=== PATIENT | male | born 1970 | race Caucasian/White ===

== ENCOUNTER 2020-02-02 14:43 | Inpatient (IN) ==
[2020-02-02] MEDS ORDERED: SODIUM CHLORIDE 0.9% 500 ML IV ONE (14:55)
--- NOTE | 2020-02-02 15:01 | Emergency Department Note ---
Impression & Plan Pulmonary emboli, Acute deep vein thrombosis, Tachycardia ED Provider Note NAME: LEIGHA ABAD AGE: 49 SEX: M : 1970 ARRIVES VIA: Walk-In INFORMANT: Patient ED PROVIDER(S): Gerber Watters DO CHIEF COMPLAINT: Right calf pain HPI: Patient is a 49-year-old male who presents the ER for right lower extremity pain. He notes that it started this past Saturday and has been getting worse. He notes his left calf is normally larger than his right parenthesis change. He has had 2 superficial DVTs previously. Notes that the pain is in his right calf but when he walks it does radiate up into his right thigh in the posterior aspect. Pain is a 6 out of 10. Better with rest but worsens with movement. Denies any previous blood clots in the lungs. No recent trips or travel, coughing up blood history of clotting disorders. No recent trauma. No other e xacerbating or remitting factors. ROS: See above HPI for pertinent positives & negatives. A total of 10 systems reviewed and were otherwise negative. PAST MEDICAL HISTORY:See Below PAST SURGICAL HISTORY:See Below FAMILY HISTORY:See Below SOCIAL HISTORY:See Below HOME MEDICATIONS:See Below ALLERGIES:See Below VITALS:See Below PHYSICAL EXAMINATION: GENERAL: Sitting up in bed, alert, well appearing, well nourished, no distress, non-toxic EYE EXAM: normal conjunctiva. OROPHARYNX: no exudate, no erythema, lips, buccal mucosa, and tongue normal and mucous membranes are moist LUNGS: Clear to auscultation. Normal chest wall mechanics HEART: Tachycardic, S1 normal and S2 normal ABDOMEN: abdomen soft, non-tender, normo-active bowel sounds, no masses, no rebound or guarding. BACK: Back is symmetrical on inspection and there is no deformity, no midline tenderness, no CVA tenderness. SKIN: no rashes and no bruising UPPER EXTREMITIES: upper extremities are grossly normal. LOWER EXTREMITIES: No pitting edema. Right calf larger than left calf. Full active and passive range of motion of right hip, knee, and ankle. DPs 2 out of 4. NEURO EXAM: Normal sensorium, cranial nerves II-XII grossly intact, normal speech, no weakness of arms, no weakness of legs. MEDICAL DECISION MAKING: Patient is a 49 y/o male that presents to RLE swelling and pain since Saturday. IV established shows no significant leukocytosis or anemia. INR was unremarkable. BMP with LFTs bilirubin troponin lipase is unremarkable. Duplex of lower extremity shows extensive clot in the right lower extremity. Patient was tachycardic upon arrival and consequently CTA of the chest was performed and showed PEs. Extensive discussion and he notes no history of any previous brain bleeds, coughing up blood, vomiting blood, urinating blood or blood in stool. Placed was placed on a heparin drip and given a bolus of heparin due to the extensive DVTs and PEs. He was updated bedside. Discussed with the hospitalist and patient was admitted for further work-up. EKG showed no ischemic changes. Triage Nursing notes reviewed. Prior medical records reviewed Vital Signs: reviewed and remarkable for tachycardic Differential diagnosis: DVT, musculoskeletal, infection, joint effusion, trauma, lymphedema, idiopathic, CHF, as well as other pathologies. ER treatment provided: See below Diagnostics interpreted by me: ECG: Sinus rhythm rate of 92 Left axis Poor baseline No PVCs Normal QTC Cardiac Monitoring: An order was placed for continuous cardiac monitoring. The monitor shows a rate of 101 with sinus rhythm. Laboratory studies: As stated above and show below. Imaging studies: CT Angio of the chest shows pulmonary emboli. Duplex of lower extremity shows extensive clot burden Consultation(s): [facility] under Dr. Boss [facility]. ED COURSE: Procedures: none Critical Care: I have personally spent 45 minutes of critical care time in the direct management of this patient. This includes bedside care, interpretation of diagnostic studies, and testing, discussion with consultants, patient, and family members, and other required patient management activities. This 45 minutes is in excess of all separately billable procedures. Past Med/Surg History Social History Feels Safe at Home: Yes Smoking Status: Never smoker Allergies Allergies Allergy/AdvReac Type Severity Reaction Status Date / Time aspirin Allergy Unknown Nose Bleeds Verified 02/02/20 15:59 Home Meds Home Medications Medication Instructions Recorded Confirmed fluticasone propionate 2 spray INTRANASAL DAILY PRN 02/02/20 02/02/20 Previous Rx's Medication Instructions Recorded oxybutynin chloride 10 mg 10 mg PO DAILY #90 tab 07/23/19 tablet,extended release 24 hr tamsulosin 0.4 mg capsule 0.4 mg PO DAILY #90 cap 07/23/19 Results & Data (ED) Vital Signs Vital Signs - 24 hr 02/02/20 14:44 02/02/20 15:14 02/02/20 15:17 Temperature 37.0 C Temperature Source Oral Pulse Rate 107 H 89 Pulse Rate from SpO2 Sensor 89 Respiratory Rate 20 27 H Blood Pressure 138/83 Blood Pressure Mean 101 Pulse Oximetry 96 97 97 Oxygen Delivery Method Room Air Room Air Sepsis Recent Fever Within 48 Hours No Sepsis New/Unexplained Change in Mental Status No Sepsis Action Taken by Nursing No Action Required 02/02/20 15:41 02/02/20 15:50 02/02/20 16:00 Temperature Temperature Source Pulse Rate 78 77 84 Pulse Rate from SpO2 Sensor 78 78 84 Respiratory Rate 22 20 19 Blood Pressure 158/110 H Blood Pressure Mean 129 Pulse Oximetry 98 97 99 Oxygen Delivery Method Sepsis Recent Fever Within 48 Hours Sepsis New/Unexplained Change in Mental Status Sepsis Action Taken by Nursing 02/02/20 16:18 02/02/20 16:20 02/02/20 16:30 Temperature Temperature Source Pulse Rate 100 H 87 88 Pulse Rate from SpO2 Sensor 88 88 Respiratory Rate 16 23 22 Blood Pressure 138/84 Blood Pressure Mean 94 Pulse Oximetry 99 98 Oxygen Delivery Method Sepsis Recent Fever Within 48 Hours Sepsis New/Unexplained Change in Mental Status Sepsis Action Taken by Nursing Laboratory Data Result diagrams: 02/02/20 15:09 02/02/20 15:09 Lab Results 02/02/20 02/02/20 02/02/20 Range/Units 15:09 15:09 15:09 WBC 9.41 (4.8-10.8) K/uL RBC 4.91 (4.7-6.1) M/uL Hgb 14.9 (14.0-18.0) g/dL Hct 43.5 (42-52) % MCV 88.6 (80-100) fL MCH 30.3 (25-34) pg MCHC 34.3 (32-36) g/dL RDW Std Deviation 41.2 (36.4-46.3) fL RDW Coeff of Nba 12.8 (11.5-14.5) % Plt Count 176 (130-400) K/uL MPV 9.4 (7.4-10.4) fL Immature Gran % (Auto) 0.3 % Neut % (Auto) 64.5 % Lymph % (Auto) 21.1 % Wood % (Auto) 10.2 % Eos % (Auto) 3.6 % Baso % (Auto) 0.3 % Immature Gran # (Auto) 0.03 H (0.00-0.02) K/uL Neut # (Auto) 6.06 (1.4-6.5) K/uL Lymph # (Auto) 1.99 (1.2-3.4) K/uL Wood # (Auto) 0.96 H (0.11-0.59) K/uL Eos # (Auto) 0.34 (0-0.5) K/uL Baso # (Auto) 0.03 (0-0.2) K/uL PT 11.5 (9.0-12.0) Seconds INR 1.1 (0.9-1.1) APTT 27.1 (21.0-31.0) Seconds PTT Ratio 1.0 Sodium 140 (136-145) mmol/L Potassium 4.0 (3.5-5.1) mmol/L Chloride 106 (98-107) mmol/L Carbon Dioxide 28 (21-32) mmol/L Anion Gap 6.0 (3-11) BUN 17 (7-18) mg/dl Creatinine 1.08 (0.6-1.4) mg/dl Est Cr Clr Drug Dosing 117.8 ml/min Est GFR ( Amer) 91.6 Est GFR (Non-Af Amer) 79.0 BUN/Creatinine Ratio 15.8 (10-20) Glucose 97 (70-99) mg/dl Calcium 8.8 (8.5-10.1) mg/dl Total Bilirubin 1.1 H (0.2-1) mg/dl AST 12 L (15-37) U/L ALT 24 (12-78) U/L Alkaline Phosphatase 102 (45-117) U/L Troponin I < 0.015 (0-0.045) ng/ml Total Protein 7.7 (6.4-8.2) gm/dl Albumin 3.6 (3.4-5.0) gm/dl Globulin 4.1 H (2.5-4.0) gm/dl Albumin/Globulin Ratio 0.9 (0.9-2) Lipase 79 (73-393) U/L Administered Medications Heparin Sodium/Dextrose (Heparin Sodium/Dextrose) 25,000 units in 500 mls @ 40 mls/hr IV .[id number] FRANCESCO; Protocol Stop: 03/03/20 16:59 Last Admin: 02/02/20 17:03 Dose: 2,000 units/hr, 40 mls/hr Documented by: [id number] Cosigned by: [id number] Discontinued Medications Heparin Sodium (Porcine) (Heparin Iv Bolus) Confirm Administered Dose 10,000 units .ROUTE .STK-MED ONE Stop: 02/02/20 16:41 Last Admin: 02/02/20 16:44 Dose: 5,000 units Documented by: [id number] Cosigned by: [id number] Heparin Sodium/Dextrose () 1 ea IV NOW STA; Protocol Stop: 02/02/20 16:26 Last Admin: 02/02/20 16:44 Dose: 1 ea Documented by: [id number] Sodium Chloride (Nss) 500 mls @ 999 mls/hr IV .Q31M ONE Stop: 02/02/20 15:25 Last Infusion: 02/02/20 15:54 Dose: 0 mls/hr Documented by: [id number] Admin: 02/02/20 15:13 Dose: 999 mls/hr Documented by: [id number] Discharge Plan Visit Data Chief Complaint: Swelling/Edema to Extremity Stated Complaint: PAIN AND SWELLING R LEG ED Provider: Gerber Watters Discharge Problem: Pulmonary emboli, Acute deep vein thrombosis, Tachycardia Forms Stand Alone Forms: [facility] [place] [employer] Prescriptions Prescriptions: No Action oxybutynin chloride 10 mg tablet extended release 24hr 10 mg PO DAILY Qty: 90 RF: 3 tamsulosin 0.4 mg capsule 0.4 mg PO DAILY Qty: 90 RF: 3 fluticasone propionate 50 mcg/actuation spray,suspension 2 spray INTRANASAL DAILY PRN (Reason: Allergy Symptoms) RF: 0 Discharge Problem: Pulmonary emboli Qualifiers: Pulmonary embolism type: unspecified Chronicity: acute Acute cor pulmonale presence: unspecified Qualified Code(s): I26.99 - Other pulmonary embolism without acute cor pulmonale Acute deep vein thrombosis Qualifiers: DVT location: lower extremity Affected thrombotic vein of extremity: other lower extremity vein Laterality: right Qualified Code(s): I82.491 - Acute embolism and thrombosis of other specified deep vein of right lower extremity
[2020-02-02 15:16] LABS: Basophils # (auto) 0.03 K/uL (0-0.2); Basophils % (auto) 0.3 %; Eosinophils # (auto) 0.34 K/uL (0-0.5); Eosinophils % (auto) 3.6 %; Hematocrit (blood only) 43.5 % (42-52); Hemoglobin 14.9 g/dL (14.0-18.0); Immature Granulocytes # (auto) 0.03 K/uL (0.00-0.02); Immature Granulocytes % (auto) 0.3 %; Lymphocytes # (auto) 1.99 K/uL (1.2-3.4); Lymphocytes % (auto) 21.1 %; Mean Corpuscular Hemoglobin 30.3 pg (25-34); Mean Corpuscular Hgb Conc 34.3 g/dL (32-36); Mean Corpuscular Volume 88.6 fL (80-100); Mean Platelet Volume 9.4 fL (7.4-10.4); Monocytes # (auto) 0.96 K/uL (0.11-0.59); Monocytes % (auto) 10.2 %; Neutrophils # (auto) 6.06 K/uL (1.4-6.5); Neutrophils % (auto) 64.5 %; Platelet Count 176 K/uL (130-400); RDW Coefficient of Variation 12.8 % (11.5-14.5); RDW Standard Deviation 41.2 fL (36.4-46.3); Red Blood Count 4.91 M/uL (4.7-6.1); White Blood Count 9.41 K/uL (4.8-10.8)
[2020-02-02 15:27] LABS: INR 1.1 (0.9-1.1); Partial Thromboplastin Time 27.1 Seconds (21.0-31.0); Prothrombin Time 11.5 Seconds (9.0-12.0)
[2020-02-02 15:35] LABS: Alanine Aminotransferase 24 U/L (12-78); Albumin Level 3.6 gm/dl (3.4-5.0); Aspartate Aminotransferase 12 U/L (15-37); BUN Creatinine Ratio 15.8 (10-20); Blood Urea Nitrogen 17 mg/dl (7-18); Calcium 8.8 mg/dl (8.5-10.1); Carbon Dioxide 28 mmol/L (21-32); Chloride 106 mmol/L (98-107); Creatinine Clr Calc Pharmacy 117.8 ml/min; Est GFR (African American) 91.6; Glucose 97 mg/dl (70-99); Lipase 79 U/L (73-393); Sodium 140 mmol/L (136-145)
[2020-02-02 15:40] LABS: Albumin Globulin Ratio 0.9 (0.9-2); Alkaline Phosphatase 102 U/L (45-117); Bilirubin,Total 1.1 mg/dl (0.2-1); Globulin 4.1 gm/dl (2.5-4.0); Total Protein 7.7 gm/dl (6.4-8.2); Troponin I < 0.015 ng/ml (0-0.045)
--- NOTE | 2020-02-02 15:45 | Ultrasound Report ---
US venous doppler LE RT HISTORY: 49 years-old Male rle swollen painful and tender acute pain and swelling of the right lower extremity COMPARISON: Duplex venous Doppler study 06/02/2016 TECHNIQUE: Multiple real-time sonographic images of the right lower extremity deep venous structures were obtained assessing grayscale appearance, color and spectral flow FINDINGS: Occlusive deep venous thrombosis is noted within the superficial femoral vein extending proximal to d istal and also includes the popliteal, posterior tibial, peroneal and anterior tibial veins. The comm on femoral and profunda femoris veins are patent. IMPRESSION: Extensive deep venous thrombosis of the right lower extremity. ACT 112: Negative or not required by law. The above report was generated using voice recognition software. It may contain grammatical, syntax o r spelling errors. Electronically signed by: Alexis Lara M.D. 02/02/2020 3:44 PM
--- NOTE | 2020-02-02 16:29 | CT Scan Report ---
CT ANGIOGRAM OF THE CHEST CLINICAL HISTORY: Tachycardia. DVT. POSSIBLE ACUTE PULMONARY EMBOLISM. COMPARISON STUDY: No previous studies for comparison. TECHNIQUE: Following the IV administration of 119 mL of Optiray-320, CT angiogram of the thorax was p erformed from the thoracic inlet to the lung bases utilizing the pulmonary embolus protocol. Images a re reviewed in the axial, sagittal, and coronal planes. IV contrast was administered without complica tion. MIP imaging was performed. A dose lowering technique was utilized adhering to the principles o f ALARA. CT DOSE: 841.60 mGy.cm FINDINGS: There is a small hiatal hernia with mild distal esophageal wall thickening Mediastinal lymph nodes are the upper limits of normal in size. There is mild ectasia of the ascending thoracic aorta which measures 4 cm There are right lung pulmonary artery filling defects involving the proximal right upper lobe pulmona ry artery, right middle lobe pulmonary artery and right lower lobe pulmonary artery. No pleural effusions are visualized. There is no focal pulmonary consolidation. There are mild dependent atelectatic changes. IMPRESSION: 1. Multiple right lung pulmonary artery filling defects indicative of acute pulmonary embolism. ACT 112: Negative or not required by law. Electronically signed by: Pancho De La Rosa M.D. 02/02/2020 4:28 PM
[2020-02-02] MEDS ORDERED: HEPARIN SODIUM/DEXTROSE 25,000 UNITS/500 ML BAG IV SCH (16:30)
[2020-02-02] MEDS ORDERED: HEPARIN SOD (PORCINE) 1000 UNIT/ML 10 ML VIAL ONE (16:40)
[2020-02-02] MEDS: Heparin Adult STANDARD Wt-Based Dextrose 5% 25,000 units/500 mL IV SCH (17:03)
--- NOTE | 2020-02-02 17:51 | History & Physical Report ---
Date of Service February 02, 2020 Assessment & Plan (1) Acute deep vein thrombosis: (2) Pulmonary emboli: Pt is 49 y/o M with PMH BPH, sleep apnea presented to ER with c/o lower extremity pain x3 days. Denies injury/trauma, recent travel, SOB, CP. H/O superficial phlebitis right lower extremity in 10/2019 treated conservatively In ER patient afebrile, P: 107 down to 88, RR: 20, BP 130/83, 96 to 98% on room air. No significant lab abnormality RLE VENOUS DOPPLER: Extensive deep venous thrombosis of the right lower extremity. CTA CHEST:. Multiple right lung pulmonary artery filling defects indicative of acute pulmonary embolism. -In ER Heparin IV started -Continue Heparin IV -Patient interested in newer anticoagulant agent -Repeat labs in am (3) BPH (benign prostatic hyperplasia): -Continue tamsulosin, oxybutynin (4) IVET (obstructive sleep apnea): -CPAP HS DVT Prophylaxis -On IV Heparin Full Code as per discussion with pt Follows with Dr Stafford for routine care Pt was seen and care coordinated with Dr Boss. See addendum History of Present Illness Chief Complaint: Right leg pain Primary Care Provider: Dago Stafford MD Pt is 49 y/o M with PMH BPH, sleep apnea presented to ER with c/o lower extremity pain x3 days. Complains of pain to right calf which extends to popliteal area with walking. Patient states has noted some swelling to right calf. Has not noticed any redness or significant warmth. History superficial thrombophlebitis right lower extremity in 10/2019, seen outpatient and treated with warm compresses. Patient states symptoms resolved. Denies any other history of DVT/PE. Denies any injury or trauma, recent surgery or procedures. Reports states approximately 4 hours at his job, denies any other prolonged immobility, recent travel. Denies family history of clotting disorders. Reports had epistaxis as child when taking aspirin however has been taking aspirin 81mg daily without any epistaxis or other bleeding. Denies fever/chills, diaphoresis, N/V/D/C, RODRIGUEZ, dizziness, syncope, vision changes, neck pain, CP, SOB, orthopnea, palpitations, cough, sore throat, choking, otalgia, rhinorrhea, abdominal pain, paresthesias, weakness, extremity weakness, rashes, urinary symptoms. Allergies Allergy/AdvReac Type Severity Reaction Status Date / Time aspirin Allergy Unknown Nose Bleeds Verified 02/02/20 15:59 Home Medications Home Medications Medication Instructions Recorded Confirmed Type oxybutynin chloride 10 mg 10 mg PO DAILY #90 tab 07/23/19 02/02/20 Rx tablet,extended release 24 hr tamsulosin 0.4 mg capsule 0.4 mg PO DAILY #90 cap 07/23/19 02/02/20 Rx fluticasone propionate 2 spray INTRANASAL DAILY PRN 02/02/20 02/02/20 History Past Med/Surg History Medical History (Updated 02/02/20 @ 18:04 by Radha Fernando PA-C) BPH (benign prostatic hyperplasia) Dysuria Nephrolithiasis Orchitis and epididymitis IVET (obstructive sleep apnea) Prostatitis Urinary urgency Varicose vein of leg Surgical History (Updated 02/02/20 @ 17:47 by Radha Fernando PA-C) H/O nasal septoplasty Status post endovenous radiofrequency ablation of saphenous vein left. 01/22/2019 at [facility] [place] by Dr Viramontes Family History (Updated 02/02/20 @ 17:48 by Radha Fernando PA-C) Father Coronary heart disease Brother Hypertension Social History (Updated 02/02/20 @ 17:48 by Radha Fernando PA-C) Preferred Language: Cook Islander Communication Ability: Effective [employer] Required: No Beliefs That Will Affect Care: None marital status: Current Living Situation: Spouse Feels Safe at Home: Yes Smoking Status: Never smoker Hx Alcohol Use: Yes Alcohol Intake Frequency: Holidays/Special Occasions Hx Substance Use: No Review of Systems Review of Systems: All systems reviewed & are unremarkable except as noted in HPI & below Physical Exam Physical Exam: General: no distress, WDWN Head: normocephalic, atraumatic Eyes: PERRL, EOM's intact, conjunctiva non-injected, anicteric ENT: normal inspection external ears, nose, mucous membranes moist Neck: supple, trachea midline Lungs: clear, no respiratory distress, no wheezing/rhonchi/rales CV: RRR, no murmur, no pitting edema Abd: normal BS, soft, non-tender Ext: Bilateral lower legs with brown discoloration with left leg greater than right. right calf with edema without significant erythema or warmth. +tenderness to palpation R popiteal region, ROM legs intact, distal pulses intact, sensation to light touch intact. Neuro: A&O x 3, no focal deficits noted, normal affect Skin: warm, dry Results & Data Results & Data ([facility]) Vital Signs (Past 12 Hours) Vital Signs Temp Pulse Resp BP Pulse Ox 02/02/20 16:30 88 22 138/84 98 02/02/20 16:20 87 23 99 02/02/20 16:18 100 H 16 02/02/20 16:00 84 19 158/110 H 99 02/02/20 15:50 77 20 97 02/02/20 15:41 78 22 98 02/02/20 15:17 97 02/02/20 15:14 89 27 H 97 02/02/20 14:44 37.0 C 107 H 20 138/83 96 Laboratory Results Short CBC 02/02/20 Range/Units 15:09 WBC 9.41 (4.8-10.8) K/uL Hgb 14.9 (14.0-18.0) g/dL Hct 43.5 (42-52) % Plt Count 176 (130-400) K/uL BMP 02/02/20 15:09 Sodium 140 Potassium 4.0 Chloride 106 Carbon Dioxide 28 BUN 17 Creatinine 1.08 Glucose 97 Calcium 8.8 Cardiac Enzymes 02/02/20 Range/Units 15:09 Troponin I < 0.015 (0-0.045) ng/ml Liver Function 02/02/20 Range/Units 15:09 Total Bilirubin 1.1 H (0.2-1) mg/dl AST 12 L (15-37) U/L ALT 24 (12-78) U/L Alkaline Phosphatase 102 (45-117) U/L Albumin 3.6 (3.4-5.0) gm/dl Diagnostic Findings RLE VENOUS DOPPLER: IMPRESSION: Extensive deep venous thrombosis of the right lower extremity. CTA CHEST: IMPRESSION: 1. Multiple right lung pulmonary artery filling defects indicative of acute pulmonary embolism. ECG Rate (beats per minute): 92 Rhythm: sinus rhythm Code Status & VTE Plan VTE Prophylaxis Plan VTE Prophylaxis will be ordered: Yes Supervising Physician Co-Signing Physician Notes Pt seen and examined by me, care coordinated with Radha Fernando PA-C. Pt is a 49 y/o M with hx of BPH, and sleep apnea who presented to ER with c/o right lower extremity pain and edema x3 days. Pt did not notice any redness or significant warmth. In ER, RLE doppler showed extensive RLE DVT and CT-PE c/w acute pulmonary embolism. Pt denies any chest pain, shortness of breath, palpitations, dizziness, dyspnea on exertion. He is lying in bed in NAD, breathing comfortably on room air. Heart sounds are regular, lung sounds clear w/o any wheezing, rhonchi, or crackles. Abdomen is soft, nontender, nondistended, w/ normal bowel sounds. Pt is alert and oriented, and answers questions appropriately. He moves extremities spontaneously. Right calf with sign. edema and tenderness on palpation. LLE unremarkable. Pt denies prior hx of DVT/PE or anticoagulation treatment. Denies any family hx of clots/ PEs. States that his father was on coumadin but thinks it was for his heart (?afib), not d/t clotting. He was started on IV heparin in ED which we will continue. Discussed PO anticoagulation options. Given pt's BMI and renal function pt could be a candidate for DOACs. MD Oscar (1) Acute deep vein thrombosis Affected thrombotic vein of extremity: other lower extremity vein DVT locat ion: lower extremity Laterality: right Qualified Code(s): I82.491 - Acute em bolism and thrombosis of other specified deep vein of right lower extremity (2) Pulmonary emboli Acute cor pulmonale presence: unspecified Chronicity: acute Pulmonary embolism type: unspecified Qualified Code(s): I26.99 - Other pulmonary embolism without acute cor pulmonale
[2020-02-02] MEDS ORDERED: ACETAMINOPHEN 325 MG TAB PO PRN (18:33)
[2020-02-02] MEDS ORDERED: FLUTICASONE PROPIONATE NA SPR 16 GM BTL PRN (18:33)
[2020-02-02] MEDS ORDERED: Nursing to Pharmacy Communication ONE (20:21)
[2020-02-02] MEDS: TAMSULOSIN HCL 0.4 MG CAP PO SCH (20:27)
[2020-02-02 23:31] LABS: Partial Thromboplastin Ratio 2.4
[2020-02-03] MEDS: Heparin Adult STANDARD Wt-Based Dextrose 5% 25,000 units/500 mL IV SCH ×2 (04:47→18:03)
--- NOTE | 2020-02-03 05:47 | Electrocardiogram Report ---
Test Reason : Blood Pressure : / mmHG Vent. Rate : 092 BPM Atrial Rate : 092 BPM P-R Int : 158 ms QRS Dur : 088 ms QT Int : 344 ms P-R-T Axes : 030 -18 029 degrees QTc Int : 425 ms Normal sinus rhythm Voltage criteria for left ventricular hypertrophy Abnormal ECG No previous ECGs available Confirmed by Ean Diego ([id number]) on 02/03/2020 5:47:28 AM Referred By: ED Confirmed By:Ean Diego
[2020-02-03 06:28] LABS: Hematocrit (blood only) 43.4 % (42-52); Hemoglobin 14.8 g/dL (14.0-18.0); Mean Corpuscular Hemoglobin 30.8 pg (25-34); Mean Corpuscular Hgb Conc 34.1 g/dL (32-36); Mean Corpuscular Volume 90.2 fL (80-100); Mean Platelet Volume 9.5 fL (7.4-10.4); Platelet Count 168 K/uL (130-400); RDW Coefficient of Variation 12.9 % (11.5-14.5); RDW Standard Deviation 42.5 fL (36.4-46.3); Red Blood Count 4.81 M/uL (4.7-6.1); White Blood Count 7.09 K/uL (4.8-10.8)
[2020-02-03 06:55] LABS: Partial Thromboplastin Ratio 2.1
[2020-02-03 07:01] LABS: BUN Creatinine Ratio 14.5 (10-20); Calcium 8.7 mg/dl (8.5-10.1); Est GFR (African American) 114.7
[2020-02-03 07:10] LABS: Partial Thromboplastin Time 59.7 Seconds (21.0-31.0)
[2020-02-03] MEDS: OXYBUTYNIN CHLORIDE XL 5 MG TABCR PO SCH (08:11)
[2020-02-03] MEDS ORDERED: TAMSULOSIN HCL 0.4 MG CAP PO SCH (09:00)
--- NOTE | 2020-02-03 09:23 | Hospitalist Progress Note ---
Date of Service February 03, 2020 Assessment & Plan (1) Acute deep vein thrombosis: (2) Pulmonary emboli: RLE VENOUS DOPPLER: Extensive deep venous thrombosis of the right lower extremity. CTA CHEST:. Multiple right lung pulmonary artery filling defects indicative of acute pulmonary embolism. Patient is hemodynamically stable Patient denied any dyspnea on exertion. However, who was on the phone during my evaluation reported he had some shortness of breath with household work over the weekend Will continue heparin drip for now He is interested in NOAC but wants to know what wyw-er-cuttif cost will be. Discussed with Coordinator who will find out with his insurance Will get 2 step ambulatory pulse ox to determine if ambulatory oxygen is needed (3) BPH (benign prostatic hyperplasia): Continue tamsulosin, oxybutynin (4) IVET (obstructive sleep apnea): CPAP HS Admission and Anticipated Discharge Date Admission Date: February 02, 2020 Subjective Patient seen and examined Reports improved right leg pain Denied any shortness of breath, chest pain, cough Denied any palpitations, dyspnea on exertion Denied any dizziness, syncope or presyncope Physical Exam Constitutional: well developed and well nourished; no acute distress Eyes: PERRL, conjunctivae normal, anicteric sclerae ENMT: external ear and nose normal, oropharynx normal Respiratory: normal respiratory effort, lungs clear to auscultation Cardiovascular: Rate/Rhythm: regular rate and regular rhythm Heart Sounds: normal S1 and normal S2 Gastrointestinal (Abdomen): normal bowel sounds, soft, nontender, no hepatosplenomegaly Musculoskeletal: Right leg edema. No tenderness Neurologic: PERRL, EOMI, accommodation nl, no face palsy, no dysarthria moves all extremities; no focal motor deficits Psychiatric: A+Ox3, euthymic affect Results & Data Results & Data ([facility]) Vital Signs (Past 12 Hours) Vital Signs Temp Pulse Pulse Resp BP BP Pulse Ox 02/03/20 07:28 76 02/03/20 07:22 37.1 C 76 18 149/78 H 96 02/03/20 04:00 36.8 C 83 20 132/82 96 02/03/20 00:00 81 02/02/20 23:00 37 C 83 20 135/81 95 Laboratory Results Short CBC 02/02/20 02/03/20 Range/Units 15:09 06:05 WBC 9.41 7.09 (4.8-10.8) K/uL Hgb 14.9 14.8 (14.0-18.0) g/dL Hct 43.5 43.4 (42-52) % Plt Count 176 168 (130-400) K/uL BMP 02/02/20 02/03/20 15:09 06:05 Sodium 140 137 Potassium 4.0 4.0 Chloride 106 104 Carbon Dioxide 28 27 BUN 17 13 Creatinine 1.08 0.89 Glucose 97 107 H Calcium 8.8 8.7 Cardiac Enzymes 02/02/20 Range/Units 15:09 Troponin I < 0.015 (0-0.045) ng/ml Liver Function 02/02/20 Range/Units 15:09 Total Bilirubin 1.1 H (0.2-1) mg/dl AST 12 L (15-37) U/L ALT 24 (12-78) U/L Alkaline Phosphatase 102 (45-117) U/L Albumin 3.6 (3.4-5.0) gm/dl (1) Acute deep vein thrombosis Affected thrombotic vein of extremity: other lower extremity vein DVT location: lower extremity Laterality: right Qualified Code(s): I82.491 - Acute embolism and thrombosis of other specified deep vein of right lower extremity (2) Pulmonary emboli Acute cor pulmonale presence: unspecified Chronicity: acute Pulmonary embolism type: unspecified Qualified Code(s): I26.99 - Other pulmonary embolism without acute cor pulmonale
[2020-02-03] MEDS: TAMSULOSIN HCL 0.4 MG CAP PO SCH (20:07)
[2020-02-04] MEDS: Heparin Adult STANDARD Wt-Based Dextrose 5% 25,000 units/500 mL IV SCH (05:48)
[2020-02-04 08:00] LABS: Hematocrit (blood only) 42.4 % (42-52); Hemoglobin 14.6 g/dL (14.0-18.0); Mean Corpuscular Hemoglobin 30.5 pg (25-34); Mean Corpuscular Hgb Conc 34.4 g/dL (32-36); Mean Corpuscular Volume 88.7 fL (80-100); Mean Platelet Volume 9.4 fL (7.4-10.4); Platelet Count 189 K/uL (130-400); RDW Coefficient of Variation 12.6 % (11.5-14.5); RDW Standard Deviation 41.1 fL (36.4-46.3); Red Blood Count 4.78 M/uL (4.7-6.1); White Blood Count 7.16 K/uL (4.8-10.8)
[2020-02-04 08:23] LABS: Partial Thromboplastin Ratio 2.8
[2020-02-04 08:26] LABS: Partial Thromboplastin Time 77.2 Seconds (21.0-31.0)
[2020-02-04 08:28] LABS: BUN Creatinine Ratio 12.2 (10-20); Calcium 8.8 mg/dl (8.5-10.1); Creatinine Clr Calc Pharmacy 163.6 ml/min; Est GFR (African American) 116.4; Est GFR (Non-African American) 100.4; Potassium 3.8 mmol/L (3.5-5.1)
[2020-02-04] MEDS: OXYBUTYNIN CHLORIDE XL 5 MG TABCR PO SCH (08:52)
[2020-02-04] MEDS ORDERED: APIXABAN 5 MG TABLET PO SCH (09:00)
--- NOTE | 2020-02-04 10:33 | Discharge Summary ---
Date of Service February 04, 2020 Admission HPI Per Admitting Provider Pt is 49 y/o M with PMH BPH, sleep apnea presented to ER with c/o lower extremity pain x3 days. Complains of pain to right calf which extends to popliteal area with walking. Patient states has noted some swelling to right calf. Has not noticed any redness or significant warmth. History superficial thrombophlebitis right lower extremity in 10/2019, seen outpatient and treated with warm compresses. Patient states symptoms resolved. Denies any other history of DVT/PE. Denies any injury or trauma, recent surgery or procedures. Reports states approximately 4 hours at his job, denies any other prolonged immobility, recent travel. Denies family history of clotting disorders. Reports had epistaxis as child when taking aspirin however has been taking aspirin 81mg daily without any epistaxis or other bleeding. Denies fever/chills, diaphoresis, N/V/D/C, RODRIGUEZ, dizziness, syncope, vision changes, neck pain, CP, SOB, orthopnea, palpitations, cough, sore throat, choking, otalgia, rhinorrhea, abdominal pain, paresthesias, weakness, extremity weakness, rashes, urinary symptoms. Admission Exam Per Admitting Provider General: no distress, WDWN Head: normocephalic, atraumatic Eyes: PERRL, EOM's intact, conjunctiva non-injected, anicteric ENT: normal inspection external ears, nose, mucous membranes moist Neck: supple, trachea midline Lungs: clear, no respiratory distress, no wheezing/rhonchi/rales CV: RRR, no murmur, no pitting edema Abd: normal BS, soft, non-tender Ext: Bilateral lower legs with brown discoloration with left leg greater than right. right calf with edema without significant erythema or warmth. +tenderness to palpation R popiteal region, ROM legs intact, distal pulses intact, sensation to light touch intact. Neuro: A&O x 3, no focal deficits noted, normal affect Skin: warm, dry Principal Diagnosis Acute right leg deep venous thrombosis Pulmonary embolism Discharge Exam Constitutional well developed and well nourished; no acute distress Eyes PERRL, conjunctivae normal, anicteric sclerae ENMT external ear and nose normal, oropharynx normal Respiratory normal respiratory effort, lungs clear to auscultation Cardiovascular Rate/Rhythm: regular rate and regular rhythm Heart Sounds: normal S1 and normal S2 Gastrointestinal (Abdomen) normal bowel sounds, soft, nontender, no hepatosplenomegaly Musculoskeletal Right leg swelling and tenderness Neurologic PERRL, EOMI, accommodation nl, no face palsy, no dysarthria moves all extremities; no focal motor deficits Psychiatric A+Ox3, euthymic affect Discharge Data Allergies Allergy/AdvReac Type Severity Reaction Status Date / Time aspirin Allergy Unknown Nose Bleeds Verified 02/02/20 15:59 Consultations 02/02/20 16:56 ED Decision to Admit Stat 02/02/20 18:33 Consult Case Management - Discharge Planning Routine Ordered Studies 02/02/20 14:55 US venous doppler LE RT Stat FINDINGS: Occlusive deep venous thrombosis is noted within the superficial femoral vein extending proximal to distal and also includes the popliteal, posterior tibial, peroneal and anterior tibial veins. The common femoral and profunda femoris veins are patent. IMPRESSION: Extensive deep venous thrombosis of the right lower extremity. 02/02/20 15:58 CT angio chest PE protocol Stat CT ANGIOGRAM OF THE CHEST CLINICAL HISTORY: Tachycardia. DVT. POSSIBLE ACUTE PULMONARY EMBOLISM. COMPARISON STUDY: No previous studies for comparison. TECHNIQUE: Following the IV administration of 119 mL of Optiray-320, CT angiogram of the thorax was performed from the thoracic inlet to the lung bases utilizing the pulmonary embolus protocol. Images are reviewed in the axial, sagittal, and coronal planes. IV contrast was administered without complication. MIP imaging was performed. A dose lowering technique was utilized adhering to the principles of ALARA. CT DOSE: 841.60 mGy.cm FINDINGS: There is a small hiatal hernia with mild distal esophageal wall thickening Mediastinal lymph nodes are the upper limits of normal in size. There is mild ectasia of the ascending thoracic aorta which measures 4 cm There are right lung pulmonary artery filling defects involving the proximal right upper lobe pulmonary artery, right middle lobe pulmonary artery and right lower lobe pulmonary artery. No pleural effusions are visualized. There is no focal pulmonary consolidation. There are mild dependent atelectatic changes. IMPRESSION: 1. Multiple right lung pulmonary artery filling defects indicative of acute pulmonary embolism Hospital Course (1) Acute deep vein thrombosis: (2) Pulmonary emboli: Right Pulmonary embolism due to right LE DVT RLE VENOUS DOPPLER: Extensive deep venous thrombosis of the right lower extremity. CTA CHEST:. Multiple right lung pulmonary artery filling defects indicative of acute pulmonary embolism. Patient was hemodynamically stable Patient denied any dyspnea on exertion. However, who was on the phone during my evaluation reported he had some shortness of breath with household work over the weekend Was initially started on heparin drip After reviewing anticoagulation options, he wanted NOAC but wanted to know what [id number] cost will be. This was provided for patient 2 Step ambulatory pulse ox did not show any need for supplemental oxygen with ambulation Eliquis was started this morning prior to discharge. Will be 10mg bid for 7 days and then 5mg bid afterwards. He will need anticoagulation for at least 3 months Provided anticoagulation education To follow up with PCP (3) BPH (benign prostatic hyperplasia): Continue tamsulosin, oxybutynin (4) IVET (obstructive sleep apnea): CPAP HS Total Time Total Time Spent Total Time Spent (In Minutes): 35 Total Time Includes: Examination of the Patient, Discharge Planning and Medication Reconciliation Discharge Plan Discharge Items Patient Disposition: Home - Self-Care Reason For Visit: PE/DVT Discharge Diagnosis: Acute right leg deep venous thrombosis Pulmonary embolism Activity: Resume your previous activity Non-emergency contact: Primary Care Provider Call non-emergency contact if: you have any medication questions and your symptoms worsen Follow-up/Referrals: Dago Stafford MD [Primary Care Provider] - 02/09/20 11:20 am (02/09/2020 11:20 AM Vinnie Trejo MD [facility] ) Diet: Heart Healthy Addtl Attending Provider Instructions: Mr Duckworth. You came to the hospital complaining of right calf pain and swelling over some days. You were evaluated and found to have blood clot in your legs and lungs. You were started on blood thinner/anticoagulation called eliquis. It is very i mportant that you take this as prescribed. You will need anticoagulation for about 3-6 months. You need to follow up with your Primary Doctor for continued management as appropriate. It was a pleasure taking care of you. Pending Studies at Discharge: No Stand-Alone Forms: [facility], Sm[facility] Cess[facility] Medications and DC Order Prescriptions: New Eliquis 5 mg (74 tabs) tablets,dose pack See Rx Instructions .ROUTE .COMPLEX Qty: 74 RF: 0 Continued oxybutynin chloride 10 mg tablet extended release 24hr 10 mg PO DAILY Qty: 90 RF: 3 tamsulosin 0.4 mg capsule 0.4 mg PO DAILY Qty: 90 RF: 3 fluticasone propionate 50 mcg/actuation spray,suspension 2 spray INTRANASAL DAILY PRN (Reason: Allergy Symptoms) RF: 0 Discharge Orders: Discharge Order (Routine); Ordered 02/04/20 Ordered By: Yaneli Joseph Admission Data Admit Date/Time: 02/03/20 15:27 Attending Provider: Yaneli Joseph I. Admit Provider: Rj Boss Primary Care Provider: Dago Stafford Other Providers: Rj Boss Other Interventions: Discharge Summary Assessment (RN) Last Done: 02/04/20 10:50 DC Date/Time DO NOT enter until pt leaves facility: 02/04/20 11:22
== END 2020-02-04 11:22 | disposition home or self-care (01) | DRG 299 ==
LOC: 2N 14:43 → ED 14:43 → SUATTDRO 17:08 → 2N 18:10